=== PATIENT | female | born 1950 | race Caucasian/White ===

== ENCOUNTER 2019-12-13 03:18 | Emergency (ER) | payer SELFPAY ==
--- NOTE | 2019-12-13 03:44 | PDOC ---
History of Present Illness - General Stated Complaint: VOMITING Time Seen by Provider: 12/13/19 03:44 History Source: Patient Exam Limitations: No Limitations - History of Present Illness Initial Comments: 12/13/19 04:44 69yF w PMHx HTN presenting with 2d subjective fevers, nausea/vomiting, epigastric pain, body aches, poor PO intake. Did not take any meds for symptoms. Denies nasal congestion, cough, chest pain, SOB, urinary/bowel mvmt changes. Past History - Past Medical History Allergies/Adverse Reactions: Allergies Allergy/AdvReac Type Severity Reaction Status Date / Time No Known Allergies Allergy Verified 12/13/19 03:49 Home Medications: Ambulatory Orders Lisinopril 10 mg PO DAILY 12/13/19 Ondansetron [Zofran *Odt*] 4 mg SL TID #10 od.tablet 12/13/19 Review of Systems - Review of Systems Constitutional: Yes: Fever, Weakness (body aches). No: Chills HEENTM: No: Eye Pain, Nose Pain, Nose Congestion, Throat Pain Respiratory: No: Cough, Shortness of Breath Cardiac (ROS): No: Chest Pain, Palpitations, Syncope ABD/GI: Yes: Nausea, Vomiting. No: Abdominal Distended, Constipated, Diarrhea : No: Burning, Dysuria, Discharge, Hematuria Musculoskeletal: No: Back Pain, Joint Pain Integumentary: No: Bruising, Flushing, Lesions Neurological: No: Headache, Seizure, Tingling Psychiatric: No: Anxiety, Depression, Stressors Endocrine: No: Excessive Sweating, Flushing, Intolerance to Cold, Intolerance to Heat Hematologic/Lymphatic: No: Anemia, Blood Clots *Physical Exam - Physical Exam General Appearance: Yes: Nourished, Appropriately Dressed, Mild Distress HEENT: positive: EOMI, AURORA, Normal Voice. negative: Scleral Icterus (R), Scleral Icterus (L), Rhinorrhea Respiratory/Chest: positive: Lungs Clear, Normal Breath Sounds. negative: Chest Tender, Respiratory Distress, Crackles, Rales, Rhonchi, Stridor, Wheezing Cardiovascular: positive: Regular Rhythm, Regular Rate, S1, S2. negative: Edema , Murmur Gastrointestinal/Abdominal: positive: Normal Bowel Sounds, Tender (mild epigastric/RUQ/LUQ/LLQ, negative ross sign), Flat, Soft. negative: Organomegaly, Distended, Guarding, Rebound Musculoskeletal: negative: CVA Tenderness (R), CVA Tenderness (L) Extremity: positive: Delayed Capillary Refill Integumentary: positive: Normal Color, Dry Neurologic: positive: magneto repairer II-XII NML intact, Fully Oriented, Alert, Normal Response, Responsive. negative: Sensory Deficit, Confused, Disoriented ED Treatment Course - LABORATORY CBC & Chemistry Diagram: 12/13/19 04:00 12/13/19 04:00 Medical Decision Making - Medical Decision Making 12/13/19 04:46 EKG NSR, HR 84, QTc 460, no ST changes lactate 1 --- 69yF w PMHx HTN presenting with 2d subjective fevers, nausea/vomiting, epigastric pain, body aches, poor PO intake d/t gastritis. Low concern for ACS ( neg trop, NSR EKG) vs UTI (neg) vs flu (neg) Given 1L NS, zofran, pepcid, maalox. Tolerated PO fluids DC home w zofran prescription Discharge - Discharge Information Problems reviewed: Yes Clinical Impression/Diagnosis: Gastritis Qualifiers: Gastritis type: superficial Chronicity: acute Gastritis bleeding: without bleeding Qualified Code(s): K29.00 - Acute gastritis without bleeding Condition: Improved Disposition: HOME - Admission No - Additional Discharge Information Prescriptions: Ondansetron [Zofran *Odt*] 4 mg SL TID #10 od.tablet - Follow up/Referral - Patient Discharge Instructions Patient Printed Discharge Instructions: DI for Vomiting -- Adult Additional Instructions: You were seen for vomiting. Your labs did not show anything concerning. You were given medication Take the prescribed zofran if you are vomiting Come back to the ED if you are vomiting with medication, vomiting blood, worsening chest pain, or trouble breathing. --- Te vieron por vmitos. Yuki laboratorios no mostraron nada preocupante. Le dieron medicacin Loring el zofran prescrito si est vomitando. Regrese al servicio de urgencias si vomita con medicamentos, vomita wilbert, empeora el dolor en el pecho o tiene problemas para respirar. Print Language: WOLOF - Post Discharge Activity
[2019-12-13 03:49] VITALS: TEMP 98.3; BMI 34.3
[2019-12-13] MEDS ORDERED: MAG HYDROX/AL HYDROX/SIMETH 30 ML UNIT-DOSE CUP PO ONE (03:59)
[2019-12-13] MEDS ORDERED: SODIUM CHLORIDE 0.9% 500 ML INFUS.BAG IV ONE (03:59)
[2019-12-13] MEDS ORDERED: FAMOTIDINE 20 MG/50 ML IVPB 20 MG/50 ML MG IVPB ONE (03:59)
[2019-12-13] MEDS ORDERED: ONDANSETRON 4 MG/2 ML VIAL IVPUSH ONE (03:59)
--- NOTE | 2019-12-13 04:01 | PDOC ---
Attending Attestation - Resident Resident Name: DianaJero - ED Attending Attestation I have performed the following: I have examined & evaluated the patient, The case was reviewed & discussed with the resident, I agree w/resident's findings & plan - HPI HPI: 12/13/19 05:22 t comes with N and V x 2 days. She ate tacos at a friend's home, but nobody else 2 days ago got sick from the food. Pt has no fever. She came because her abdomen was really paining her and she was afraid. She has flu like sx and she wants to be checked out. She lives in the [facility] and he family was visiting her a few days back and they drove her up. Pt has no other complaints. - Physicial Exam PE: 12/13/19 05:30 Afebrile VSS heart and lungs clear abd gassy, but NT ND; obese abd No flank pain Ext no edema no clubbing or cyanosis Neuro intact - Medical Decision Making 12/13/19 05:31 Labs normal flu negative IVNSS given and she feels better Pt has normal UA She feels much better and she will be discharged
[2019-12-13] MEDS ORDERED: MAG HYDROX/AL HYDROX/SIMETH 30 ML UNIT-DOSE CUP ONE (04:14)
[2019-12-13] MEDS ORDERED: ONDANSETRON 4 MG/2 ML VIAL ONE (04:14)
[2019-12-13 04:43] LABS: BASO % 0.8 % (0-2.0); HEMATOCRIT 38.7 % (32.4-45.2); HEMOGLOBIN 12.9 GM/dL (10.7-15.3); LYMPH % 13.4 % (8-40); MCH 29.9 pg (25.7-33.7); MCHC 33.3 g/dl (32.0-36.0); MEAN CELL VOLUME 89.9 fl (80-96); MEAN PLT VOLUME 9.1 fl (7.5-11.1); MONO % 3.8 % (3.8-10.2); PLATELET COUNT 247 K/MM3 (134-434); RDW 13.8 % (11.6-15.6); WHITE BLOOD COUNT 8.1 K/mm3 (4.0-10.0)
[2019-12-13 04:57] LABS: URINE APPEARANCE CLEAR; URINE BILIRUBIN NEGATIVE (NEGATIVE); URINE COLOR YELLOW; URINE GLUCOSE (UA) NEGATIVE (NEGATIVE); URINE KETONE TRACE (NEGATIVE); URINE LEUK ESTERASE NEGATIVE (NEGATIVE); URINE NITRITE NEGATIVE (NEGATIVE); URINE PROTEIN TRACE (NEGATIVE)
[2019-12-13 05:16] LABS: ALBUMIN 3.6 g/dl (3.4-5.0); ALK PHOS 147 U/L (45-117); ANION GAP 7 MMOL/L (8-16); BILIRUBIN,TOTAL 0.4 mg/dL (0.2-1); BLOOD UREA NITROGEN 12.3 mg/dL (7-18); CALCIUM 8.9 mg/dL (8.5-10.1); CHLORIDE 107 mmol/L (98-107); CO2 26 mmol/L (21-32); CREATININE 0.6 mg/dL (0.55-1.3); GLUCOSE,RANDOM 120 mg/dL (74-106); LIPASE 93 U/L (73-393); POTASSIUM 3.8 mmol/L (3.5-5.1); SGOT/AST 21 U/L (15-37); SGPT/ALT 26 U/L (13-61); SODIUM 140 mmol/L (136-145); TOT PROT 7.4 g/dl (6.4-8.2)
[2019-12-13 05:38] VITALS: BP 150/53; PULSE 81
--- NOTE | 2019-12-13 08:29 | EKG ---
Test Reason : Blood Pressure : / mmHG Vent. Rate : 084 BPM Atrial Rate : 084 BPM P-R Int : 150 ms QRS Dur : 082 ms QT Int : 390 ms P-R-T Axes : 029 005 058 degrees QTc Int : 460 ms POOR DATA QUALITY, INTERPRETATION MAY BE ADVERSELY AFFECTED NORMAL SINUS RHYTHM NORMAL ECG NO PREVIOUS ECGS AVAILABLE Confirmed by AUGUSTO VASQUEZ MD ([id number]) on 12/13/2019 8:29:12 AM Referred By: Confirmed By:AUGUSTO VASQUEZ MD
== END 2019-12-13 05:31 | disposition home or self-care (01) ==
LOC: JER 03:18
PROC: 3E033GC Introduction of Other Therapeutic Substance into Peripheral Vein, Percutaneous Approach (ICD-10-PCS; principal; 2019-12-13)
DX: K29.00 Acute gastritis without bleeding (principal)
CPT/HCPCS: 36415; 80053; 81003; 83605; 83690; 84484; 85025; 87804; 93005; 93010; 99283-25